=== PATIENT | female | born 1990 | race Caucasian/White ===

== ENCOUNTER 2016-04-25 11:40 | Emergency (ER) | payer BC, MEDICAID, OTHER ==
[~2016-04-25] VITALS: Ht 160 cm; Wt 68.0 kg
[2016-04-25 12:14] VITALS: Ht 160 cm; Wt 68.0 kg
[2016-04-25] MEDS ORDERED: DIPHTH/TET/ACEL PERTUSS (ADULT) 0.5 ML VIAL IM* ONE (12:30)
--- NOTE | 2016-04-25 12:54 | ERA ---
ER Documentation Chief Complaint Date/Time DATE: 04/25/16 TIME: 12:54 Chief Complaint bibr sp "depressed, cut my l forearm" denies si denies hi. HPI 25-year-old female with no significant previous medical history brought to the ED via rescue ambulance complaining of increasing feelings of hopelessness and depression since discovering her is having an affair and leaving her. She cut her left arm in a suicide attempt. [id number]. Continues to have suicidal thoughts but denies visual or auditory hallucinations. Otherwise asymptomatic. Denies chest pain or palpitations. No shortness of breath or cough. No abdominal pain, nausea vomiting. No dysuria, polyuria or hematuria. Denies vaginal discharge or bleeding. No fevers or chills. ROS All systems reviewed and are negative except as per history of present illness. Medications Home Meds No Active Prescriptions or Reported Meds Allergies Allergies: Coded Allergies: No Known Allergy (Unverified , 04/25/16) PMhx/Soc Medical and Surgical Hx: pt denies Medical Hx, pt denies Surgical Hx Hx Alcohol Use: No Hx Substance Use: Yes Smoking Status: Current some day smoker Physical Exam Vitals Vital Signs Date Time Temp Pulse Resp B/P Pulse Ox O2 Delivery O2 Flow Rate FiO2 04/26/16 03:38 98.2 75 17 103/65 100 Room Air 04/26/16 01:40 98.5 77 17 101/61 99 Room Air 04/26/16 00:32 98.2 73 17 105/61 98 Room Air 04/25/16 21:00 98.6 67 16 118/65 100 Room Air 04/25/16 12:14 98.6 88 18 123/68 99 Physical Exam Const: Alert, anxious, tearful Head: Atraumatic Eyes: Normal Conjunctiva ENT: Normal External Ears, Nose and Mouth. Neck: Full range of motion. Nontender. No meningismus. Resp: Clear to auscultation bilaterally Cardio: Regular rate and rhythm, no murmurs Abd: Soft, non tender, non distended. Normal bowel sounds Skin: No petechiae or rashes Back: No midline or flank tenderness Ext: No cyanosis, or edema. Left upper extremity: Forearm: 5 cm laceration volar aspect deep to fat. No active bleeding. No evidence of foreign body. Normal range of motion. Distal neurovascular intact. Neur: Awake and alert. N focal deficit. Psych: Cooperative. Patient appears anxious and depressed. Tearful. Denies visual or auditory hallucination. Judgement impaired by abnormal suicidal thoughts. Result Diagram: 04/25/16 1245 04/25/16 1245 Results 24 hrs Laboratory Tests Test 04/25/16 12:45 04/25/16 13:30 Acetaminophen Level < 10.0ug/ml Alanine Aminotransferase (ALT/SGPT) 20IU/L Albumin 4.3g/dl Albumin/Globulin Ratio 1.48 Alkaline Phosphatase 46IU/L Anion Gap 16 Aspartate Amino Transf (AST/SGOT) 16IU/L Basophils # 0.010^3/ul Basophils % 0.0% Blood Urea Nitrogen 9mg/dl Calcium Level 9.2mg/dl Carbon Dioxide Level 28mmol/L Chloride Level 103mmol/L Creatinine 0.62mg/dl Direct Bilirubin 0.00mg/dl Eosinophils # 0.010^3/ul Eosinophils % 0.4% Ethyl Alcohol Level < 10.0mg/dl Globulin 2.90g/dl Glucose Level 107mg/dl Hematocrit 42.0% Hemoglobin 14.2g/dl Indirect Bilirubin 0.8mg/dl Lymphocytes # 0.810^3/ul Lymphocytes % 11.1% Mean Corpuscular Hemoglobin 30.2pg Mean Corpuscular Hemoglobin Concent 33.9g/dl Mean Corpuscular Volume 89.1fl Mean Platelet Volume 8.6fl Monocytes # 0.510^3/ul Monocytes % 7.5% Neutrophils # 5.710^3/ul Neutrophils % 81.0% Nucleated Red Blood Cells # 0.010^3/ul Nucleated Red Blood Cells % 0.0/100WBC Platelet Count 33410^3/UL Potassium Level 3.2mmol/L Red Blood Count 4.7110^6/ul Red Cell Distribution Width 13.4% Salicylates Level < 1.0mg/dl Serum HCG, Qualitative NEGATIVE Sodium Level 144mmol/L Total Bilirubin 0.8mg/dl Total Protein 7.2g/dl White Blood Count 7.010^3/ul Urine Amphetamines Screen Negative Urine Bacteria MANY Urine Barbiturates Negative Urine Benzodiazepines Screen Negative Urine Bilirubin NEGATIVE Urine Cannabinoids Positive Urine Clarity SLIGHTLY CLOUDY Urine Cocaine Screen Negative Urine Color LT. YELLOW Urine Glucose NEGATIVE% Urine Hemoglobin 2+ Urine Ketones 40 Urine Leukocyte Esterase TRACE Urine Microscopic RBC 0-2/HPF Urine Microscopic WBC 0-2/HPF Urine Nitrite POSITIVE Urine Opiates Screen Negative Urine Specific [place] 1.020 Urine Squamous Epithelial Cells FEW Urine Total Protein NEGATIVE Urine Urobilinogen 1.0 E.U./dL Urine pH 6.0 Current Medications Medications (Trade) Dose Ordered Sig/Jordan Route PRN Reason Start Time Stop Time Status Last Admin Dose Admin Diphtheria/ Tetanus/Acell Pertussis (Adacel) 0.5 ml ONCE ONCE IM* 04/25/16 12:30 04/26/16 03:46 DC 04/25/16 12:43 Lidocaine (Xylocaine 1% (Mdv) 20 ml) 20 ml ONCE ONCE SC 04/25/16 13:00 04/26/16 03:46 DC Ibuprofen (Motrin) 800 mg ONCE ONCE PO 04/25/16 21:30 04/26/16 03:46 DC 04/25/16 21:06 Procedures/MDM DOCUMENTS REVIEWED: ED nurse, EMS. PROCEDURES: Laceration Repair: Anesthesia: 1% lidocaine locally Location: Left forearm Tendon/Joint/Nerves: No injury Foreign body: None detected after copious irrigation and exploration Technique: Fawn Complexity: No subcutaneous sutures/mucosal repair/ edge excision Post Closure Length: 5 cm Patient's bleeding was easily controlled in the department and there is no indication of anemia. No evidence of compartment syndrome, neurologic injury, vascular injury, open joint, tendon laceration, or foreign body. Patient is appropriate for outpatient follow up. 48 hour wound check. Scar minimization instructions given. MEDICAL DECISION MAKIN-year-old female with no significant previous medical history brought to the ED via rescue ambulance complaining of increasing feelings of hopelessness and depression since discovering her is having an affair and leaving her and cut her left forearm with a razor suicide attempt. Mild hypokalemia treated with oral replacement. Patient with no significant medical comorbidities is medically cleared for psychiatric evaluation. Laceration left forearm closed primarily without evidence of foreign body, tender neurovascular injury. Presentation consistent with depression, suicidal ideation and adjustment disorder. Patient evaluated by telemedicine psychiatrist Dr. Prince wood who recommends admission either with 5150 hold or voluntary admission if patient is willing. Counseled patient regarding diagnosis, diagnostic results and plan for admission. CARE TRANSFERRED: Time 16:30: Dr Carlton Henderson, for disposition pending PMRT evaluation and placement. Departure Diagnosis: Primary Impression: Adjustment disorder Qualified Code: F43.21 - Adjustment disorder with depressed mood Additional Impressions: Depression Qualified Code: F32.9 - Depression, unspecified depression type Laceration of left forearm Qualified Code: S51.812A - Laceration of left forearm, initial encounter Condition: Serious RACHEL STODDARD MD Apr 25, 2016 12:54
[2016-04-25] MEDS ORDERED: LIDOCAINE 1% (MDV) 20 ML INJ SC ONE (13:00)
[2016-04-25 13:04] LABS: EOSINOPHILS % 0.4 % (0.0-7.0); HEMOGLOBIN 14.2 g/dl (12.0-16.0); LYMPHOCYTES # 0.8 10^3/ul (0.8-2.9); LYMPHOCYTES % 11.1 % (15.0-51.0); MEAN CORPUSCULAR HEMOGLOBIN 30.2 pg (29.0-33.0); MEAN CORPUSCULAR HGB CONC 33.9 g/dl (32.0-37.0); MEAN CORPUSCULAR VOLUME 89.1 fl (82.0-101.0); MEAN PLATELET VOLUME 8.6 fl (7.4-10.4); MONOCYTE # 0.5 10^3/ul (0.3-0.9); MONOCYTES % 7.5 % (0.0-11.0); NEUTROPHIL # 5.7 10^3/ul (1.6-7.5); PLATELET COUNT 249 10^3/UL (140-440); RED BLOOD COUNT 4.71 10^6/ul (4.20-5.40); RED CELL DISTRIBUTION WIDTH 13.4 % (11.5-14.5)
[2016-04-25 13:05] LABS: CONDITION 1
[2016-04-25 13:08] LABS: ALBUMIN 4.3 g/dl (3.3-4.9); CHLORIDE 103 mmol/L (97-110)
[2016-04-25 13:09] LABS: POTASSIUM 3.2 mmol/L (3.5-5.1); SODIUM 144 mmol/L (135-144)
[2016-04-25 13:11] LABS: ALBUMIN/GLOBULIN RATIO 1.48; ANION GAP 16 (8-16); BILIRUBIN,INDIRECT 0.8 mg/dl (0-1.1); BILIRUBIN,TOTAL 0.8 mg/dl (0.2-1.3); CARBON DIOXIDE 28 mmol/L (21-31); CREATININE 0.62 mg/dl (0.44-1.00); TOTAL PROTEIN 7.2 g/dl (6.1-8.1)
[2016-04-25 13:12] LABS: ALANINE AMINOTRANSFERASE 20 IU/L (13-69); ALKALINE PHOSPHATASE 46 IU/L (42-121); ASPARTATE AMINO TRANSFERASE 16 IU/L (15-46); BLOOD UREA NITROGEN 9 mg/dl (7-20); CALCIUM 9.2 mg/dl (8.4-10.2); GLUCOSE 107 mg/dl (70-220)
[2016-04-25 13:17] LABS: ACETAMINOPHEN < 10.0 ug/ml (10.0-30.0); ETHANOL < 10.0 mg/dl; SALICYLATE < 1.0 mg/dl (5.0-30.0)
--- NOTE | 2016-04-25 13:39 | PSY ---
Date/Time of Note Date/Time of Note DATE: 04/25/16 TIME: 13:30 Psychiatric Subjective Eval Consent Pt consented to telemedicine: Yes Subjective Evaluation Patient location: emergency Chief Complaint: bibr sp "depressed, cut my l forearm" denies si denies hi. Reason for consult: Suicidal ideation History of present illness Patient is a 25 year old female who found out last week that her 30 year old common law has been having a 5 month affair with a 17 year old. She found out from a letter written by the girl stating that she was glad they had a relationship together, including sex. Patient also found naked pictures of the girl on her 's computer. Patient has been dealing with this all week and today, her told her he was leaving her to try and have a relationship with this girl. Patient is despondent. They have a 3 year old daughter together. She took a knife and cut her arm in a suicide attempt. Patient states she still feels suicidal and does not feel safe. She denies any past history of mental health issues. Past psychiatric history Denies Hospitalization: no Family History Denies Medical history None Allergies: Coded Allergies: No Known Allergy (Unverified , 01/09/13) Substance Abuse Substance use: No known substance abuse Social History Marital status: Level of education: N/A DPA/Conservatorship: No Occupation/Halfway: Parent Psychiatric Objective Eval Mental Status Examination: Appearance: Groomed Eye Contact: Good Psychomotor Activity: Normal Behavior: Cooperative Speech: Soft AFFECT: Other (sad, tearful) Mood: Depressed Though Process: Linear Thought Content: Normal Suicidal: Yes Homicidal: No On 72 hour hold: No Orientation: x4 Cognition: Alert Insight: Intact Judgement: Intact Attention Span: Intact Laboratory Results Laboratory Tests Test 04/25/16 12:45 Acetaminophen Level < 10.0ug/ml Alanine Aminotransferase (ALT/SGPT) 20IU/L Albumin 4.3g/dl Albumin/Globulin Ratio 1.48 Alkaline Phosphatase 46IU/L Anion Gap 16 Aspartate Amino Transf (AST/SGOT) 16IU/L Basophils # 0.010^3/ul Basophils % 0.0% Blood Urea Nitrogen 9mg/dl Calcium Level 9.2mg/dl Carbon Dioxide Level 28mmol/L Chloride Level 103mmol/L Creatinine 0.62mg/dl Direct Bilirubin 0.00mg/dl Eosinophils # 0.010^3/ul Eosinophils % 0.4% Ethyl Alcohol Level < 10.0mg/dl Globulin 2.90g/dl Glucose Level 107mg/dl Hematocrit 42.0% Hemoglobin 14.2g/dl Indirect Bilirubin 0.8mg/dl Lymphocytes # 0.810^3/ul Lymphocytes % 11.1% Mean Corpuscular Hemoglobin 30.2pg Mean Corpuscular Hemoglobin Concent 33.9g/dl Mean Corpuscular Volume 89.1fl Mean Platelet Volume 8.6fl Monocytes # 0.510^3/ul Monocytes % 7.5% Neutrophils # 5.710^3/ul Neutrophils % 81.0% Nucleated Red Blood Cells # 0.010^3/ul Nucleated Red Blood Cells % 0.0/100WBC Platelet Count 86901^3/UL Potassium Level 3.2mmol/L Red Blood Count 4.7110^6/ul Red Cell Distribution Width 13.4% Salicylates Level < 1.0mg/dl Sodium Level 144mmol/L Total Bilirubin 0.8mg/dl Total Protein 7.2g/dl White Blood Count 7.010^3/ul Assessment and Plan Assessment/Diagnosis [place] I: Adjustment Disorder, Unspecified Recommendation/Plan Medication Management No medications warranted at this time. Consider ativan while in ER to help her with her anxiety. Psychotherapy Needs outpatient referrals for therapy. Pt. Caregiver/Family Education N/A Follow-up/Disposition At this time, patient still feels suicidal. Would start to work on inpatient hospitalization in order to provide safety. Recommend vp digital marketing social media and crm talk with her for several reasons. First, to find out what social service support she may need. Second, this appears to be a CPS case. Her common law has been having an affair with a minor. If patient appears to improve before hospitalization arranged, please re-consult telepsych. She has some reasons to live and appears that her suicidal thinking has diminished somewhat since being in the ER. [id number] Recommendation: Con[place]der voluntary hospitalization if patient willing. JABIER PIZARRO Apr 25, 2016 13:38
[2016-04-25 13:53] LABS: ADD UMIC YES; URINE BILIRUBIN (Dip) NEGATIVE (NEGATIVE); URINE BLOOD (Dip) 2+ (NEGATIVE); URINE COLOR LT. YELLOW (YELLOW); URINE GLUCOSE (Dip) NEGATIVE (NEGATIVE); URINE KETONES (Dip) 40 (NEGATIVE); URINE LEUKOCYTE ESTERASE (Dip) TRACE (NEGATIVE); URINE NITRITE (Dip) POSITIVE (NEGATIVE); URINE TOTAL PROTEIN (Dip) NEGATIVE (NEGATIVE); URINE UROBILINOGEN (Dip) 1.0 E.U./dL (0.1-1.0)
[2016-04-25 14:09] LABS: BARBITURATES Negative (NEGATIVE); BENZODIAZEPINES Negative (NEGATIVE)
[2016-04-25 14:14] LABS: COCAINE Negative (NEGATIVE); OPIATES Negative (NEGATIVE)
[2016-04-25 14:15] LABS: BACTERIA,URINE MANY; SQUAMOUS EPITHELIAL CELL,UR FEW; URINE RBCS 0-2 /HPF (0)
[2016-04-25 14:16] LABS: CANNABINOIDS Positive (NEGATIVE)
--- NOTE | 2016-04-25 14:55 | RADRPT ---
PROCEDURE: XR Left Forearm forearm CLINICAL INDICATION: Trauma TECHNIQUE: AP and lateral radiographs were submitted. COMPARISON: None FINDINGS: Osseous structures: appear well mineralized and intact with no fracture or osseous destruction evid ent. Joint spaces: are well maintained with no significant erosion or spurring evident. There is no sig nificant joint effusion Soft tissues: Yulan are seen within the superficial soft tissues of the mid forearm. No radiopaqu e foreign body is otherwise evident. IMPRESSION: 1. Fawn are seen within the soft tissues at the ventral mid forearm. 2. Otherwise, unremarkable left forearm series. Physician Jose C Date Time Electronically viewed and signed by Physician Jose C on 04/25/2016 14:55 /
--- NOTE | 2016-04-25 19:21 | QN ---
Documentation Comment Observation Note: Time: 4 hours Family Hx: Negative for diabetes Evaluation: Multiple exams showed improving symptoms and no evidence of clinical decompensation. Patient is awaiting psychiatric placement and transfer at this time. LEWIS COMER MD Apr 25, 2016 19:21
[2016-04-25] MEDS ORDERED: IBUPROFEN 800 MG TAB PO ONE (21:30)
[2016-04-26 03:38] VITALS: BP 103/65; PULSE 75; RESP 17; TEMP 98.2
== END 2016-04-26 03:38 ==
LOC: E/R 11:40
DX: F43.21 Adjustment disorder with depressed mood (principal); S51.812A Laceration without foreign body of left forearm, initial encounter; F17.210 Nicotine dependence, cigarettes, uncomplicated; X78.8XXA Intentional self-harm by other sharp object, initial encounter; Y92.9 Unspecified place or not applicable; Z23 Encounter for immunization
CPT/HCPCS: 12002; 36415; 73090; 80053; 80306; 80307; 81001; 84703; 85025; 90471; 90715; Z7502; Z7610; 81003

== ENCOUNTER 2016-05-20 07:48 | Emergency (ER) | payer OTHER ==
[~2016-05-20] VITALS: Wt 46.0 kg
--- NOTE | 2016-05-20 11:05 | ERD ---
ER Documentation Chief Complaint Date/Time DATE: 05/20/16 TIME: 11:02 Chief Complaint here for suture removal on left forearm. no distress HPI 25-year-old female presents the ED for a suture removal of a laceration noted on her left forearm due to previous suicidal ideation. Patient reports that she has been applying triple antibiotic ointment to her laceration site. Patient denies any suicidal ideations or homicidal ideations currently. Denies any hallucinations. Denies any fevers, chills, increased redness, swelling, loss of sensation, loss of range of motion due to her laceration. ROS All systems reviewed and are negative except as per history of present illness. Medications Home Meds No Active Prescriptions or Reported Meds Allergies Allergies: Coded Allergies: No Known Allergy (Unverified , 05/20/16) PMhx/Soc Hx Alcohol Use: No Hx Substance Use: Yes Physical Exam Vitals Vital Signs Date Time Temp Pulse Resp B/P Pulse Ox O2 Delivery O2 Flow Rate FiO2 05/20/16 07:57 98.0 83 20 103/54 99 Physical Exam Const: [id number], well-nourished. In no acute distress. Head: Atraumatic, normocephalic Eyes: Normal Conjunctiva without injection ENT: Normal external ear, nose and mouth. Neck: Full range of motion. No meningismus. Resp: Clear to auscultation bilaterally. No wheezing, rhonchi, rales, or crackles. No accessory muscle use. No retractions. Cardio: Regular rate and rhythm, no murmurs Skin: No petechiae or rashes. 5 cm linear laceration noted on the volar aspect of patient's left forearm with no surrounding erythema, edema, fluctuance, purulent discharge. 7 kortney noted keeping the laceration intact. No signs of dehiscence. Back: No midline tenderness. No CVA tenderness. Ext: No cyanosis, or edema. Cap refill less than 2 seconds. Distal pulses intact bilaterally. Neur: Awake and alert. Normal gait and coordination. Muscle strength 5/5. Sensation intact bilaterally. Psych: Normal Mood and Affect Procedures/MDM This is a 25-year-old female who presents to the ED for a staple removal of the laceration noted on her left forearm. Patient is afebrile and nontoxic- appearing. Patient has normal vital signs. Patient gave consent to remove the kortney at this time. The 7 kortney were removed without difficulty with a staple remover. No signs of dehiscence. Laceration is intact. Patient's extremity symptoms have stabilized while they have been evaluated in the department and are appropriate for outpatient follow up. No evidence of cellulitis, deep space infection, abscess fractures, dislocations, compartment syndrome, neurologic injury, vascular injury, open joint, open fracture, tendon laceration, septic arthritis, osteomyelitis, DVT, foreign body, or other emergent conditions. Patient does not have any suicidal or homicidal ideations. No indication for psychiatric consultation at this time. Follow up with primary care physician in 1-2 days. Instructed patient to return to the ED sooner for any worsening symptoms. Patient's questions were answered. Patient understood and agreed with discharge plan. Patient discharged stable. Departure Diagnosis: Primary Impression: Encounter for removal of kortney Condition: Stable Patient Instructions: Staple Removal, No Complication Referrals: [facility] YOU HAVE RECEIVED A MEDICAL SCREENING EXAM AND THE RESULTS INDICATE THAT YOU DO NOT HAVE A CONDITION THAT REQUIRES URGENT TREATMENT IN THE EMERGENCY DEPARTMENT. FURTHER EVALUATION AND TREATMENT OF YOUR CONDITION CAN WAIT UNTIL YOU ARE SEEN IN YOUR DOCTORS OFFICE WITHIN THE NEXT 1-2 DAYS. IT IS YOUR RESPONSIBILITY TO MAKE AN APPOINTMENT FOR FOLOW-UP CARE. IF YOU HAVE A PRIMARY DOCTOR --you should call your primary doctor and schedule an appointment IF YOU DO NOT HAVE A PRIMARY DOCTOR YOU CAN CALL OUR PHYSICIAN REFERRAL HOTLINE AT IF YOU CAN NOT AFFORD TO SEE A PHYSICIAN YOU CAN CHOSE FROM THE FOLLOWING [facility] [address] [facility]. [facility] [address] [facility] [facility] [address] [facility] [address] [facility] [address] [facility]. [facility]. [address] [facility] YOU HAVE RECEIVED A MEDICAL SCREENING EXAM AND THE RESULTS INDICATE THAT YOU DO NOT HAVE A CONDITION THAT REQUIRES URGENT TREATMENT IN THE EMERGENCY DEPARTMENT. FURTHER EVALUATION AND TREATMENT OF YOUR CONDITION CAN WAIT UNTIL YOU ARE SEEN IN YOUR DOCTORS OFFICE WITHIN THE NEXT 1-2 DAYS. IT IS YOUR RESPONSIBILITY TO MAKE AN APPOINTMENT FOR FOLOW-UP CARE. IF YOU HAVE A PRIMARY DOCTOR --you should call your primary doctor and schedule and appointment IF YOU DO NOT HAVE A PRIMARY DOCTOR YOU CAN CALL OUR PHYSICIAN REFERRAL HOTLINE AT . IF YOU CAN NOT AFFORD TO SEE A PHYSICIAN YOU CAN CHOSE FROM THE FOLLOWING [facility] INSTITUTIONS: [facility] [address] [place] [address] [facility] [address] [place] [address] [facility] [address] [place] [address] [facility] URGENT C[facility]/SPECIALTIES Additional Instructions: Call your primary care doctor TOMORROW for an appointment during the next 1-2 days.See the doctor sooner or return here if your condition worsens before your appointment time. DERRICK PARKER PA-C May 20, 2016 11:05
== END 2016-05-20 08:55 | disposition home or self-care (01) ==
LOC: FTE 07:48
DX: Z48.02 Encounter for removal of sutures (principal)
CPT/HCPCS: Z7502; Z7610; 99281